=== PATIENT | male | born 1985 | race Caucasian/White ===

== ENCOUNTER 2018-09-15 16:45 | Emergency (ER) | payer BC, OTHER ==
[2018-09-15 16:53] VITALS: BP 119/91
--- NOTE | 2018-09-15 17:38 | ED Physician Documentation ---
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 He presents now with scalp laceration. He denies loss of consciousness, headache, nausea or vomiting. His last tetanus booster was about 3 years ago. Review of Systems Eyes: denies: Decreased vision Ears: denies: Tinnitus/ringing GI: denies: Nausea, Vomiting Skin: reports: Laceration (s) (scalp) Musculoskeletal: denies: Neck pain, Back pain Neurologic: denies: Focal weakness, Numbness, Headache PD PAST MEDICAL HISTORY - Past Medical History Endocrine/Autoimmune: None - Past Surgical History Past Surgical History: No - Present Medications Home Medications: Ambulatory Orders Medication Instructions Recorded Confirmed EPINEPHrine [Epipen 2-Blake] 0.3 mg IJ ONCE #2 unit 08/08/15 predniSONE [Deltasone] 60 mg PO DAILY 5 Days tablet 08/08/15 - Allergies Allergies/Adverse Reactions: Allergies Allergy/AdvReac Type Severity Reaction Status Date / Time Penicillins Allergy Unknown Verified 09/15/18 16:53 soy Allergy Unknown Verified 09/15/18 16:53 - Social History Does the pt smoke?: No Smoking Status: Never smoker Does the pt drink ETOH?: Yes Does the pt have substance abuse?: No Substance Use and Type: Marijuana - Immunizations Immunizations are current?: Yes - POLST Patient has POLST: No PD ED PE NORMAL - Vitals Vital signs reviewed: Yes (normal) - General General: Alert and oriented X 3, Well developed/nourished - HEENT HEENT: PERRL, EOMI, Ears normal, Other (There is a 1 cm stellate laceration on the vertex of the scalp. No bony step-off is palpated. No foreign body is detected.) - Neck Neck: No bony TTP, Other (Full cervical range of motion without tenderness.) - Cardiac Cardiac: RRR - Respiratory Respiratory: No respiratory distress - Derm Derm: No rash - Neuro Neuro: Alert and oriented X 3, No motor deficit, Normal speech Results - Vitals Vitals: Vital Signs - 24 hr 09/15/18 16:50 Temperature 36.5 C Heart Rate 56 L Respiratory 17 Rate Blood Pressure 119/91 H O2 Saturation 100 Oxygen O2 Source Room air Procedures - Laceration (location) scalp Length in cm: 1 Wound type: Stellate Neurovascular status: Vascular intact Anesthesia: Lidocaine 1% with epi Wound Preparation: Hibiclens, Irrigated copiously NS, Wound explored, To the base. No: FB identified Skin layer closure: Larry, Other (3 larry) Other: Patient tolerated well, No complications, Neurovascular intact, Tetanus UTD Complexity: Simple PD MEDICAL DECISION MAKING - ED course Complexity details: considered differential, d/w patient, d/w family, other (An L&I form was completed.) ED course: The patient's presentation is significant for a scalp laceration. His clinical presentation does not suggest more significant head injury that would require imaging studies. Treatment in the emergency department included thorough irrigation of the wound after instilling local anesthetic using lidocaine with epinephrine. The wound was repaired with larry. I discussed with him and his the expected course of healing, timing for staple removal, as well as potentially worrisome signs or symptoms that should prompt reevaluation in the emergency department. Departure - Departure Disposition: 01 Home, Self Care Clinical Impression: Scalp laceration Condition: Stable Instructions: ED Laceration Scalp Stitch Or Stap Comments: Keep the wound clean. It is okay to shower and shampoo. Follow-up for removal of larry in 10 to 12 days. Return to the emergency department if you develop any sign of infection, increasing headache, persistent vomiting, or otherwise worsening symptoms.
== END 2018-09-15 17:48 | disposition home or self-care (01) ==
LOC: ED 16:45
DX: S01.01XA Laceration without foreign body of scalp, initial encounter (principal); W22.09XA Striking against other stationary object, initial encounter; Y99.0 Civilian activity done for income or pay
CPT/HCPCS: 1040M; 12001; 99282; 99283

== ENCOUNTER 2019-04-29 22:45 | Emergency (ER) | payer SELFPAY ==
--- NOTE | 2019-04-29 23:21 | ED Physician Documentation ---
History of Present Illness - Stated complaint Stated Complaint: ALLERGIC REACTION/FACE SWOLLEN - Chief complaint Chief Complaint: Wound - History obtained from History obtained from: Patient - History of Present Illness Timing: Today Pain level max: 0 Pain level now: 0 Improved by: nothing - Additonal information Additional information: Patient says he is having allergic reaction. Strangulated nasal passageways, hard time swallowing. He has had similar, sudden onset symptoms before which had been attributed to an allergic reaction. It is not clear what the trigger is, although tonight he had just finished eating dinner and dessert, and he says he has several food allergies. regarding tonight symptoms, he denies swelling of the lips, tongue, throat. He feels sinus congestion, rhinorrhea, facial swelling, and postnasal drip. He denies rash, itching. He took 60 mg prednisone tonight and 30mg benadryl (liquid). the benadryl is a recent purchase, but he also brings epipens (unused) with him and I note these August,. Patient says the prednisone was filled the same time as the epipens. Review of Systems Constitutional: reports: Reviewed and negative Nose: reports: Rhinorrhea / runny nose, Congestion Respiratory: reports: Reviewed and negative GI: reports: Reviewed and negative Skin: reports: Reviewed and negative PD PAST MEDICAL HISTORY - Past Medical History Past Medical History: No Endocrine/Autoimmune: None - Past Surgical History Past Surgical History: No - Present Medications Home Medications: Ambulatory Orders Medication Instructions Recorded Confirmed EPINEPHrine [Epipen 2-Blake] 0.3 mg IJ ONCE #2 unit 08/08/15 predniSONE [Deltasone] 60 mg PO DAILY 5 Days tablet 08/08/15 EPINEPHrine [Epinephrine] 0.3 mg IJ ONCE PRN #2 auto.injct 04/30/19 predniSONE [Prednisone] 40 mg PO DAILY 4 Days #8 tablet 04/30/19 - Allergies Allergies/Adverse Reactions: Allergies Allergy/AdvReac Type Severity Reaction Status Date / Time Penicillins Allergy Unknown Verified 09/15/18 16:53 soy Allergy Unknown Verified 09/15/18 16:53 - Social History Does the pt smoke?: No Smoking Status: Never smoker Does the pt drink ETOH?: Yes Does the pt have substance abuse?: No - Immunizations Immunizations are current?: Yes - POLST Patient has POLST: No PD ED PE NORMAL - Vitals Vital signs reviewed: Yes - General General: Alert and oriented X 3, No acute distress, Well developed/nourished - HEENT HEENT: Moist mucous membranes, Pharynx benign, Other (mild facial swelling and erythema) - Neck Neck: Supple, no meningeal sign - Cardiac Cardiac: RRR, No murmur - Respiratory Respiratory: No respiratory distress, Clear bilaterally Results - Vitals Vitals: Oxygen O2 Source Room air PD MEDICAL DECISION MAKING - ED course Complexity details: re-evaluated patient, considered differential, d/w patient ED course: given solu-medrol and benadryl IV, reevaluated and he is asymptomatic. he no longer has facial swelling nor erythema and lungs remain CTA bilaterally Departure - Departure Disposition: 01 Home, Self Care Clinical Impression: Allergic reaction Condition: Good Instructions: ED Allergic Reaction General Other Prescriptions: EPINEPHrine [Epinephrine] 0.3 mg IJ ONCE PRN #2 auto.injct PRN Reason: Anaphylaxis predniSONE [Prednisone] 40 mg PO DAILY 4 Days #8 tablet Discharge Date/Time: 04/30/19 01:38
[2019-04-29] MEDS ORDERED: methylPREDNISolone SUCCINATE 125 MG/2 ML VIAL IVP STA (23:22)
[2019-04-29] MEDS ORDERED: diphenhydrAMINE INJ 50 MG/ML VIAL IVP STA (23:22)
[2019-04-30 01:38] VITALS: BP 130/64
== END 2019-04-30 01:38 | disposition home or self-care (01) ==
LOC: ED 22:45
DX: T78.40XA Allergy, unspecified, initial encounter (principal); R22.0 Localized swelling, mass and lump, head; L53.9 Erythematous condition, unspecified; R09.81 Nasal congestion; R09.82 Postnasal drip
CPT/HCPCS: 96374; 99284; J1200

== ENCOUNTER 2023-05-20 20:11 | Emergency (ER) | payer OTHER ==
[2023-05-20 20:39] VITALS: BP 147/75; O2SAT 98
[2023-05-20] MEDS ORDERED: cefTRIAXone 1 GM VIAL IM STA (21:44)
[2023-05-20] MEDS ORDERED: LIDOCAINE 1% 2 ML VIAL MC ONE (21:44)
--- NOTE | 2023-05-20 21:54 | ED Physician Documentation ---
History of Present Illness - Stated complaint Stated Complaint: RT THUMB PX/REDNESS - Chief complaint Chief Complaint: Ext Problem - Additonal information Additional information: 37-year-old male presents with right thumb redness and swelling. He states several days ago he was at work, On 05/12, he was sanding a deck. He does not recall any injuries or splinters at that time but subsequently developed some soreness in the right thumb. Particularly on the lateral aspect of the thumb near the nail. He states redness and swelling worsened over the last several days he noticed some streaks of redness up his thumb. He has not had a fever or chills. He has not had any drainage. He still is able to move the thumb without difficulty. He presents now with increasing thumb pain and swelling. Review of Systems Constitutional: reports: Reviewed and negative Skin: reports: Lesions Musculoskeletal: reports: Extremity pain, Extremity swelling PD PAST MEDICAL HISTORY - Past Medical History Endocrine/Autoimmune: None - Past Surgical History Past Surgical History: No - Present Medications Home Medications: Ambulatory Orders Medication Instructions Recorded Confirmed EPINEPHrine [Epinephrine] 0.3 mg IJ ONCE PRN #2 auto.injct 04/30/19 cephALEXin [Keflex] 500 mg PO Q6H #20 cap 05/20/23 - Allergies Allergies/Adverse Reactions: Allergies Allergy/AdvReac Type Severity Reaction Status Date / Time Penicillins Allergy Unknown Verified 05/20/23 20:36 soy Allergy Unknown Verified 05/20/23 20:36 - Social History Does the pt smoke?: No Smoking Status: Never smoker Does the pt drink ETOH?: Yes Does the pt have substance abuse?: No - Immunizations Immunizations are current?: Yes - POLST Patient has POLST: No PD ED PE NORMAL - Vitals Vital signs reviewed: Yes - General General: Alert and oriented X 3, No acute distress, Well developed/nourished - HEENT HEENT: Atraumatic, Moist mucous membranes - Derm Derm: Other (There is a mild redness on the tip of the right thumb around the lateral aspect of the finger not on the thumb pad with a slight streaking erythema to the base of the thumb but no further.) - Extremities Extremities: No deformity, Other (Right thumb is tender from the DIP to the tip. He has normal flexion extension range of motion of the thumb.) Results - Vitals Vitals: Vital Signs - 24 hr 05/20/23 20:29 Temperature 36.6 C Heart Rate 56 L Respiratory 17 Rate Blood Pressure 147/75 H O2 Saturation 98 Oxygen O2 Source Room air Procedures - Abscess I&D (location) Finger right Preparation: Lidocaine 1% Incision: Needle aspiration, Purulent drainage Other: Pt tolerated well PD Medical Decision Making - ED course Complexity details: considered differential, d/w patient ED course: 37-year-old male presenting with tenderness and mild swelling of the right thumb that occurred after standing a deck. He did not sustain any known injuries but may have had a small splinter at that time. Here, the patient has tenderness and palpable swelling around the nail and into the pad of the right thumb. There is a mild streak of erythema up to the base of the thumb. No obvious fluctuance on exam but I suspected paronychia or infection into the thumb pad and therefore I recommended a needle puncture to see if we could drain the pus and remove pressure. The patient was agreeable to this. The area was locally anesthetized and then a 18-gauge needle was inserted into the site of the thumb. Initially no pus removed however then I moved closer to the fingernail and a large amount of pus was removed along with a small bit of foreign body that was in the nail fold. Patient tolerated well. I then wrapped this time in a dressing. I recommended that we start him on antibiotics and he was given a first dose of ceftriaxone here given the streaking erythema up the thumb though low suspicion for sepsis or bacteremia. Will start on Keflex and he is complete course, recommended that he soak the finger in warm water to help with ongoing drainage and to return at any point time if increased swelling decreased range of motion fever chills or new concerns. Departure - Departure Disposition: 01 Home, Self Care Clinical Impression: Injury of thumb, right, superficial, infected Qualifiers: Encounter type: initial encounter Qualified Code(s): S60.931A - Unspecified superficial injury of right thumb, initial encounter Condition: Good Instructions: ED Abscess IandD, ED Fingernail Infec Prescriptions: cephALEXin [Keflex] 500 mg PO Q6H #20 cap Comments: Your thumb infection was likely caused by a tiny splinter underneath the nail. We drained some pus from the finger and has started on antibiotics. I recommend that you soak the finger in warm water to help it drain and you can take ibuprofen or Tylenol for pain. We have given you dose antibiotics here in the ER and then you will take 5 additional days of antibiotics as prescribed. Return if the swelling worsens you develop a fever or new concerns. Forms: PCP List Discharge Date/Time: 05/20/23 22:17
== END 2023-05-20 22:17 | disposition home or self-care (01) ==
LOC: ED 20:11
DX: S60.931A Unspecified superficial injury of right thumb, initial encounter (principal); M79.5 Residual foreign body in soft tissue; X58.XXXA Exposure to other specified factors, initial encounter; Y99.0 Civilian activity done for income or pay
CPT/HCPCS: 26010; 99283

== ENCOUNTER 2023-06-23 20:09 | Emergency (ER) | payer SELFPAY ==
[2023-06-23] MEDS: EPINEPHrine 1 MG/ML AMP IM STA (21:06)
--- NOTE | 2023-06-23 22:00 | ED Physician Documentation ---
History of Present Illness - Stated complaint Stated Complaint: ALLERGIC REACTION - Chief complaint Chief Complaint: Allergic Rx - History obtained from History obtained from: Patient, Family - History of Present Illness Timing: Today Pain level max: 0 Pain level now: 0 - Additonal information Additional information: 37-year-old male presents to the emergency department stating that he had an allergic reaction tonight at approximately 1830. He took an EpiPen that was in 2017. Called EMS. Was given IV Benadryl and IV Solu-Medrol. He states that the redness and swelling seems to be lessening. He does not have any throat swelling. No difficulty breathing or speaking. He is allergic to penicillins, hazelnuts and soy. Review of Systems Constitutional: denies: Fever, Chills GI: denies: Vomiting : denies: Dysuria, Frequency Skin: denies: Rash Musculoskeletal: denies: Neck pain, Back pain Neurologic: denies: Headache PD PAST MEDICAL HISTORY - Past Medical History Endocrine/Autoimmune: None - Past Surgical History Past Surgical History: No - Present Medications Home Medications: Ambulatory Orders Medication Instructions Recorded Confirmed EPINEPHrine [Epinephrine] 0.3 mg IJ ONCE PRN #2 auto.injct 04/30/19 06/23/23 EPINEPHrine [Epinephrine] 0.3 mg IJ ONCE PRN #2 each 06/23/23 predniSONE [Deltasone] 40 mg PO DAILY #10 tablet 06/23/23 - Allergies Allergies/Adverse Reactions: Allergies Allergy/AdvReac Type Severity Reaction Status Date / Time hazelnut Allergy Anaphylaxis Verified 06/23/23 20:12 Penicillins Allergy Unknown Verified 06/23/23 20:12 soy Allergy Unknown Verified 06/23/23 20:12 - Social History Does the pt smoke?: Yes Smoking Status: Current every day smoker Does the pt drink ETOH?: Yes Does the pt have substance abuse?: No - Immunizations Immunizations are current?: Yes - POLST Patient has POLST: No PD ED PE NORMAL - Vitals Vital signs reviewed: Yes - General General: Alert and oriented X 3, No acute distress, Well developed/nourished - HEENT HEENT: PERRL, Moist mucous membranes - Neck Neck: Supple, no meningeal sign - Cardiac Cardiac: RRR, Strong equal pulses - Respiratory Respiratory: No respiratory distress, Clear bilaterally - Abdomen Abdomen: Soft, Non tender, Non distended - Derm Derm: Warm and dry, Other (There is urticaria bilaterally over his arms, legs and torso. Has an erythematous face as well. Normal intraoral exam) - Neuro Neuro: Alert and oriented X 3 - Psych Psych: Normal mood, Normal affect Results - Vitals Vitals: Vital Signs - 24 hr 06/23/23 06/23/23 06/23/23 20:10 20:50 21:20 Temperature Heart Rate 70 64 73 Respiratory 16 65 H 14 Rate Blood Pressure 147/87 H 121/71 O2 Saturation 96 95 95 06/23/23 06/23/23 06/23/23 21:30 22:00 22:22 Temperature 36.7 C Heart Rate 76 73 80 Respiratory 16 15 18 Rate Blood Pressure 131/62 H 134/61 H 134/61 H O2 Saturation 95 95 99 Oxygen O2 Source Room air PD Medical Decision Making - ED course Complexity details: re-evaluated patient, considered differential, d/w patient ED course: 37-year-old male presents to the emergency department with an allergic reaction today at home. Took an epinephrine pen, unclear how effective this was. Was given a dose of epinephrine here. Had received Solu-Medrol and Benadryl with EMS. He was observed for several hours and was requesting to go home. Urticaria resolved. All redness resolved. Normal phonation. No wheezing. No stridor. No evidence of allergic reaction at this time Warned of biphasic reactions. We will place on steroids for home along with EpiPen. Patient and family counseled regarding signs and symptoms for which I believe and urgent re- evaluation would be necessary. Patient with good understanding of and agreement to plan and is comfortable going home at this time This document was made in part using voice recognition software. While efforts are made to proofread this document, sound alike and grammatical errors may occur. Departure - Departure Disposition: Home, Self Care Clinical Impression: Allergic reaction Qualifiers: Encounter type: initial encounter Qualified Code(s): T78.40XA - Allergy, unspecified, initial encounter Condition: Good Instructions: ED Allergic Reaction General Other Follow-Up: Stevo Burgos ARNP [Primary Care Provider] - Within 1 week Prescriptions: predniSONE [Deltasone] 40 mg PO DAILY #10 tablet EPINEPHrine [Epinephrine] 0.3 mg IJ ONCE PRN #2 each PRN Reason: Anaphylaxis Comments: Your prescriptions were sent to [facility] in [place]. Please take the prednisone until gone. Please take a Zyrtec or Claritin daily as well. If you need to use the epinephrine pen, you need to be seen in the emergency department right away as the allergic reaction may recur when the EpiPen wears off. Please return if you worsen. Forms: PCP List Discharge Date/Time: 06/23/23 22:26
[2023-06-23] MEDS: predniSONE 20 MG TABLET PO STA (22:20)
[2023-06-23 22:30] VITALS: BP 134/61; O2SAT 99
== END 2023-06-23 22:26 | disposition home or self-care (01) ==
LOC: EDUNIT# → ED 20:09
DX: T78.40XA Allergy, unspecified, initial encounter (principal); X58.XXXA Exposure to other specified factors, initial encounter; Y92.009 Unspecified place in unspecified non-institutional (private) residence as the place of occurrence of the external cause; F17.200 Nicotine dependence, unspecified, uncomplicated; Z79.899 Other long term (current) drug therapy; Z91.018 Allergy to other foods; Z88.0 Allergy status to penicillin; Z91.09 Other allergy status, other than to drugs and biological substances
CPT/HCPCS: 96372; 99283; 99284